=== PATIENT | female | born 1995 | race Caucasian/White ===

== ENCOUNTER 2018-01-08 14:21 | Outpatient (CLI) | payer OTHER ==
--- NOTE | 2018-01-08 16:07 | ULT ---
COMPLETE OB ULTRASOUND GREATER THAN 14 WEEKS: History: 22-year-old female for anatomy evaluation. FINDINGS: Single viable intrauterine fetus is noted in breech presentation. The placenta is fundal. Cervical le ngth 4.3 cm. Amniotic fluid is within normal limits with an JOSE F of 14.5 cm. Visualized anatomy including brain, four chamber heart, three vessel cord, stomach, bladder, kidney, spine and ext remity regions are unremarkable as visualized with somewhat limited visualization of the lips and nos e. BDP 5.3 cm 20 weeks 0 days HC 19.6 cm 21 weeks 5 days AC 17.1 cm 20 weeks 0 days FL 3.6 cm 21 weeks 3 days IMPRESSION: Unremarkable single viable intrauterine fetus in breach presentation. Gestational age average 21 week s 5 days. EDC 6. Estimated weight 450 grams. POS: ZARIA
== END 2018-01-08 14:22 | disposition home or self-care (01) ==
LOC: ULT 14:21
PROVIDERS: ATTEND Nurse Practitioner
DX: Z34.82 Encounter for supervision of other normal pregnancy, second trimester (principal); Z3A.21 21 weeks gestation of pregnancy
CPT/HCPCS: 76805

== ENCOUNTER 2018-05-05 11:57 | Day surgery (SDC) | payer OTHER ==
--- NOTE | 2018-05-05 12:28 | PDOC.LDHP ---
Labor and Delivery H&P Chief complaint: other (scheduled version) HPI: 22yo at 38w3d by LMP for external version for breech presentation. No complaints. Current gestational age (weeks): 38 Due date: 05/16/18 Dating criteria: last menstrual period Grav: 3 Para: 1 Current complications: none Abnormal US findings: No Current medications: pre-agustin vitamins Previous surgical history: none Allergies/Adverse Reactions: Allergies Allergy/AdvReac Type Severity Reaction Status Date / Time No Known Allergies Allergy Verified 05/05/18 12:37 Social history: none - Physical Exam Vital signs reviewed and normal: yes General: NAD Lungs: CTAB Abdomen: gravid Extremeties: no edema FHT: category 1 [place] contractions every: none - OB Labs Blood type: O RH: negative Antibody Screen: negative HIV: negative RPR: negative HEPSAg: negative 1 hour GCT: negative GBS: negative Urine drug screen: negative Rubella: immune - Assessment 38wk IUP with persistent breech presentation for version. - Plan -: Counseled on options, breech unengaged, nl JOSE F, anterior placenta, feel attempt at version is reasonable. Disc risk of failure (50/50), NRFHT/abruption/ROM that would require emergent CS. Pt understands and wishes to proceed. Procedure note: Preop dx 38w IUP, breech presentation. Procedure attempted external cephalic version Complications: none Procedure note: Pt given 0.25mcg SC terbutaline. Mineral oil placed on abdomen. Ultrasound performed by Dr Dunaway. head and breech grasped and attempted to do forward and backward roll. This was unsuccessful. Intermittent FHT 134. Procedure concluded and unsuccessful due to head being under right rib cage and inability to grasp to vert. Pt tolerated well. For monitoring for 30min and Rhogam prior to DC.
[2018-05-05] MEDS ORDERED: Mineral Oil PER 1 ML PO SCH (12:30)
[2018-05-05] MEDS ORDERED: Terbutaline Sulfate 1 MG/ML VIAL ONE (12:32)
[2018-05-05 13:00] VITALS: BMI 45.8
[2018-05-05] MEDS ORDERED: Mineral Oil PER 1 ML TOP SCH (13:03)
[2018-05-05] MEDS ORDERED: Ondansetron HCl/PF 4 MG/2 ML Vial IVP PRN (13:03)
[2018-05-05] MEDS ORDERED: Promethazine HCl 25 MG/ML VIAL IM PRN (13:03)
[2018-05-05] MEDS ORDERED: Terbutaline Sulfate 1 MG/ML VIAL SC SCH (13:03)
[2018-05-05] MEDS ORDERED: Lactated Ringer's 1,000 ML IV SCH (13:03)
[2018-05-05] MEDS ORDERED: Butorphanol Tartrate 1 MG/ML VIAL SLOW IVP PRN (13:03)
[2018-05-05 13:14] VITALS: BP 125/57; TEMP 98.6
== END 2018-05-05 14:47 | disposition home or self-care (01) ==
LOC: L&D/OP 11:57
PROVIDERS: ATTEND Student in an Organized Health Care Education/Training Program
DX: O32.1XX0 Maternal care for breech presentation, not applicable or unspecified (principal); Z3A.38 38 weeks gestation of pregnancy
CPT/HCPCS: 59412; 76815; 86850; 86900; 86901; 90384; 96365; 96366; 96372; 96375; J3105

== ENCOUNTER 2018-05-09 12:00 | Inpatient (IN) | payer OTHER ==
[2018-05-13 06:24] VITALS: BMI 45.8
[2018-05-13] MEDS ORDERED: Bupivacaine 0.75% W/DEXTROSE 8.25% 2 ML AMP ONE (07:08)
[2018-05-13] MEDS ORDERED: PHENYLEPHRINE-NS 100 MCG/ML 10 ML SYRINGE ONE (07:09)
[2018-05-13] MEDS ORDERED: Oxytocin 10 UNITS/ML VIAL ONE ×2 (07:09→08:15)
[2018-05-13] MEDS ORDERED: Morphine PF 1 MG/ML SYR ONE (07:10)
[2018-05-13] MEDS ORDERED: Bicitra 30 ML UDCUP ONE (07:14)
[2018-05-13] MEDS ORDERED: Lidocaine 1% PF 5 ML VIAL ONE (07:15)
[2018-05-13] MEDS ORDERED: Ondansetron HCl/PF 4 MG/2 ML Vial ONE ×2 (07:19→12:38)
[2018-05-13 07:28] LABS: Hemoglobin 11.9 g/dL (12.0-16.0); Mean Corpuscular HGB CONC 34.7 g/dL (32.0-36.0); Mean Corpuscular Hemoglobin 30.1 pg (27.0-31.0); Mean Corpuscular Volume 86.6 fL (78.0-98.0); Mean Platelet Volume 8.6 fL (7.4-10.4); Platelet Count 204 thou/uL (130-400); RBC Distribution Width 13.8 % (11.5-14.5); Red Blood Cell (RBC) Count 3.95 mill/uL (4.20-5.40); White Blood Cell (WBC) Count 9.7 thou/uL (4.8-10.8)
[2018-05-13] MEDS ORDERED: CEFAZOLIN/Water 2 GM/20 ML SYRINGE SLOW IVP SCH (07:30)
[2018-05-13] MEDS ORDERED: Bicitra 30 ML UDCUP PO SCH (07:30)
--- NOTE | 2018-05-13 07:32 | PDOC.LDHP ---
Labor and Delivery H&P Chief complaint: scheduled section HPI: 22yo at 39w4d by LMP for PCS due to breech, failed ECV. C/o toothache Current gestational age (weeks): 39 Due date: 05/14/18 Dating criteria: last menstrual period Grav: 2 Para: 1 Current complications: none Abnormal US findings: No Past Medical History: denies Current medications: pre- vitamins Previous surgical history: none Allergies/Adverse Reactions: Allergies Allergy/AdvReac Type Severity Reaction Status Date / Time No Known Allergies Allergy Verified 05/05/18 12:37 Social history: none - Physical Exam Vital signs reviewed and normal: yes General: NAD Heart: RRR Lungs: CTAB Abdomen: gravid Extremeties: no edema FHT: category 1 [place] contractions every: none - OB Labs Blood type: O RH: negative Antibody Screen: negative HIV: negative RPR: negative HEPSAg: negative 1 hour GCT: negative GBS: negative Urine drug screen: positive Rubella: immune - Assessment L&D Assessment: scheduled primary section - Plan Plan: admit to L&D, to OR for section, informed consent obtained, anesthesia consult for pain management -: UDS for previous + THC on initial screen Rhogam PP if indicated
[2018-05-13] MEDS ORDERED: CEFAZOLIN 1 GM VIAL ONE (07:36)
[2018-05-13 08:05] LABS: HBSAg Index 0.16 S/CO (0-0.99); Hep B Surf Ag Non-Reactive S/CO (NonReactive)
[2018-05-13] MEDS ORDERED: Meperidine HCl/PF 25 MG/ML VIAL SLOW IVP PRN (08:11)
[2018-05-13] MEDS ORDERED: Naloxone HCl 0.4 mg/ml Vial IVP PRN ×2 (08:11)
[2018-05-13] MEDS ORDERED: Promethazine HCl 25 MG SUPP PR PRN (08:11)
[2018-05-13] MEDS ORDERED: HYDROmorphone 2 MG/ML VIAL SLOW IVP PRN (08:11)
[2018-05-13] MEDS ORDERED: Naloxone HCl 0.4 mg/ml Vial IV PRN (08:11)
[2018-05-13] MEDS ORDERED: Promethazine HCl 25 MG/ML VIAL IM PRN ×2 (08:11→10:58)
[2018-05-13] MEDS ORDERED: diphenhydrAMINE 50 MG/ML VIAL IVP PRN (08:11)
[2018-05-13] MEDS ORDERED: Eucerin (Mineral Oil/Petrolatum,White) 30 gm Jar TOP PRN (08:11)
[2018-05-13] MEDS ORDERED: Ondansetron HCl/PF 4 MG/2 ML Vial IVP PRN ×3 (08:11→10:58)
[2018-05-13] MEDS ORDERED: Ketorolac Tromethamine 30 MG/ML VIAL IVP PRN (08:11)
[2018-05-13] MEDS ORDERED: Ketorolac Tromethamine 30 MG/ML VIAL IVP SCH (08:15)
[2018-05-13] MEDS ORDERED: Communication Order-Pharmacy FS SCH (08:15)
[2018-05-13 09:38] LABS: Amphetamine Not Detected (NotDetected); Barbiturates Screen Not Detected (NotDetected); Benzodiazepine Screen Not Detected (NotDetected); Cocaine Metabolite Screen Not Detected (NotDetected); Medtox Control Line Valid? VALID (VALID); Medtox Reader # READER 1; Methadone Not Detected (NotDetected); Methamphetamine Not Detected (NotDetected); Opiate Screen Not Detected (NotDetected); Oxycodone Screen Not Detected (NotDetected); Phencyclidine (PCP) Not Detected (NotDetected); THC/Cannabinoid Screen Not Detected (NotDetected); Tricyclic Screen Not Detected (NotDetected)
--- NOTE | 2018-05-13 09:48 | PDOC.OPDEL ---
OB Operative/Delivery Note Delivery Dr/Surgeon: Isaac Assist: Jolie, PGY1 Pre-Delivery Diagnosis: breech, scheduled section Procedure/Post Delivery Dx: primary low transverse CS Weeks gestation: 39 Anesthesia: spinal - Findings A Sex: female (8) - 1 min: 8 - 5 min: 9 - Additional Findings/Plan Placenta delivered: spontaneous findings: low transverse hysterotomy without extension, normal uterus, normal tubes, normal ovaries Estimated blood loss: 500 Post delivery plan: routine recovery
[2018-05-13] MEDS ORDERED: HYDROcodone/Acetaminophen 5/325 mg Tablet PO PRN (10:58)
[2018-05-13] MEDS ORDERED: Prenatal Vitamin 1 TAB PO SCH (10:58)
[2018-05-13] MEDS ORDERED: Bisacodyl 10 MG SUPP PR PRN (10:58)
[2018-05-13] MEDS ORDERED: NS / Oxytocin 40 units/1000ml 1,000 ML IV SCH (10:58)
[2018-05-13] MEDS ORDERED: Acetaminophen 325 MG TAB PO PRN (10:58)
[2018-05-13] MEDS ORDERED: diphenhydrAMINE 25 MG CAP PO PRN (10:58)
[2018-05-13] MEDS ORDERED: Docusate Calcium (SURFAK) 240 MG CAP PO SCH (10:58)
[2018-05-13] MEDS ORDERED: Lanolin Ointment 7 GM TUBE TOP PRN (10:58)
[2018-05-13] MEDS ORDERED: Adacel (T-DAP) 0.5 ML VIAL IM ONE (10:58)
[2018-05-13] MEDS ORDERED: Ferrous Sulfate 325 MG TAB PO SCH (10:58)
[2018-05-13] MEDS: Ibuprofen 800 MG TAB PO SCH (14:24)
[2018-05-13] MEDS: Simethicone Chewable 80 MG TAB PO PRN (14:24)
[2018-05-13 16:59] LABS: Syphilis Antibody Nonreactive (Nonreactive); Syphilis Antibody Index 0.04 S/CO (<1.00 Non-Reactive)
[2018-05-14] MEDS: Ferrous Sulfate 325 MG TAB PO SCH ×3 (05:21→21:44)
[2018-05-14] MEDS: Docusate Calcium (SURFAK) 240 MG CAP PO SCH ×3 (05:21→21:44)
[2018-05-14] MEDS: Ibuprofen 800 MG TAB PO SCH ×4 (05:22→21:44)
[2018-05-14 05:56] LABS: Mean Corpuscular HGB CONC 34.6 g/dL (32.0-36.0); Mean Corpuscular Hemoglobin 30.4 pg (27.0-31.0); Mean Corpuscular Volume 87.9 fL (78.0-98.0); Mean Platelet Volume 8.2 fL (7.4-10.4); Platelet Count 168 thou/uL (130-400); RBC Distribution Width 13.8 % (11.5-14.5); Red Blood Cell (RBC) Count 3.31 mill/uL (4.20-5.40); White Blood Cell (WBC) Count 8.2 thou/uL (4.8-10.8)
--- NOTE | 2018-05-14 08:13 | PDOC.PP ---
Post Progress Note Post Day #: 1 PO intake tolerated: yes Flatus: yes Ambulation: yes Vital Signs (12 hours) Temp Pulse Resp 05/14/18 00:00 98.8 F 85 20 Weight Weight 259 lb - Physical Examination General: NAD Cardiovascular: RRR Respiratory: non-labored breathing Abdominal: no distention, appropriately TTP Fundus firm & at: umb-2 Skin: CS incision dry & intact Neurological: no gross focal deficits Psychiatric: normal affect Result Diagrams: 05/14/18 05:20 Additional Labs: Post Labs Blood Type O NEGATIVE 05/13/18 06:20 Hep Bs Antigen Non-Reactive S/CO (NonReactive) 05/13/18 06:20 (1) Breech, regina Code(s): O32.1XX0 - MATERNAL CARE FOR BREECH PRESENTATION, UNSP Status: Acute (2) delivery indicated due to breech presentation Code(s): O32.1XX0 - MATERNAL CARE FOR BREECH PRESENTATION, UNSP Status: Acute - Assessment/Plan POD1 s/p PCS for breech VSSAF Hgb 10 after ebl 500cc, appropriate without s/sx anemia, dc with PNV. Appropriate postop milestones. Rh neg Rhogam screening, RImm UDS neg, h/o THC on intial visit. Cont postop care.
[2018-05-14] MEDS: Simethicone Chewable 80 MG TAB PO PRN (09:22)
[2018-05-14] MEDS: Prenatal Vitamin 1 TAB PO SCH (09:22)
[2018-05-14] MEDS: HYDROcodone/Acetaminophen 5/325 mg Tablet PO PRN ×2 (11:08→21:45)
--- NOTE | 2018-05-14 19:35 | OP ---
DATE OF PROCEDURE: 05/13/2018. PREOPERATIVE DIAGNOSES: 1. Intrauterine at 39 weeks and 4 days. 2. Breech presentation, failed external cephalic version. POSTOPERATIVE DIAGNOSES: 1. Intrauterine at 39 weeks and 4 days. 2. Breech presentation, failed external cephalic version. PROCEDURE PERFORMED: Primary low transverse section via Pfannenstiel skin incision. ANESTHESIA: Spinal. ATTENDING SURGEON: Georgiana Gray M.D. BOAT BUFFER PLASTIC SURGEON: COMPLICATIONS: None. DRAINS: George catheter. PATHOLOGY: None. ESTIMATED BLOOD LOSS: 500 mL INTRAVENOUS FLUID: 1500 crystalloid. URINE OUTPUT: Pending. FINDINGS: A female infant in regina breech presentation, clear amniotic fluid, Apgars of 8 and 9, venice ght is 6 pounds 10 ounces. Normal uterus, ovaries and tubes bilaterally. OPERATIVE TECHNIQUE: The patient was taken to the operating room where spinal anesthesia was obtaine d without difficulty. The patient was prepped and draped in a sterile fashion in the dorsal supine p osition with leftward tilt. After ensuring adequacy of anesthesia, a Pfannenstiel skin incision was made and carried down to the underlying subcutaneous tissue with the Bovie. The fascia was nicked in the midline with the Bovie and carried laterally with the Ram scissors. The superior aspect of the fascia was tented with the Celestine and dissected off the rectus bluntly. The perforators were cauter ized. The inferior aspect of the fascia was tented with two Kochers and dissected off the rectus kristina n to the pubic symphysis with the Ram. The rectus were bluntly divided in the midline and the perit oneum was bluntly (01:54) manually retracted. The Beto O retractor was placed and the lower uterine segment was incised in a transverse fashion with the Valenzuela maneuver. The breech was brought t o the hysterectomy and delivered with standard maneuvers without difficulty. The cord was clamped an d the infant handed to the awaiting sandra team. Cord blood was obtained and the placenta was allowed t o spontaneously deliver. The uterus was exteriorized, cleared of all clots and debris. The posterio r cul-de-sac was left out and placed back into the abdomen. Hysterectomy was repaired with #1 Monocr yl in running locking fashion. A second imbricating layer of #1 Monocryl was placed in a horizontal fashion with excellent hemostasis noted. Irrigation of the pelvis and pericolic gutters was performe d and suctioned and again noting hemostasis. The peritoneum was closed with a 2-0 chromic in a runni ng fashion. The rectus muscles were examined and noted to be hemostatic. The fascia was reapproxima kaya with an 0 PDS x2 sutures with excellent reapproximation. Subcutaneous tissue was irrigated and c auterized of any bleeders and reapproximated with a 2-0 plain gut in a running fashion x2 layers. Sk in was closed with 4-0 Monocryl in a subcuticular fashion. Dermabond was applied as well as a pressu re dressing. The patient tolerated the procedure well. Sponge, lap and needle counts were correct x 2. The patient was taken to recovery room in stable condition. The patient received Ancef 2 grams p rior to the procedure.
[2018-05-15] MEDS: Ibuprofen 800 MG TAB PO SCH (05:13)
[2018-05-15] MEDS: Docusate Calcium (SURFAK) 240 MG CAP PO SCH (07:38)
[2018-05-15] MEDS: HYDROcodone/Acetaminophen 5/325 mg Tablet PO PRN ×2 (07:38→12:13)
[2018-05-15] MEDS: Prenatal Vitamin 1 TAB PO SCH (07:38)
[2018-05-15 07:48] VITALS: BP 121/72; TEMP 98.1
[2018-05-15] MEDS: Ferrous Sulfate 325 MG TAB PO SCH (09:11)
--- NOTE | 2018-05-15 10:08 | PDOC.PP ---
Post Progress Note Post Day #: 2 PO intake tolerated: yes Flatus: yes Ambulation: yes Vital Signs (12 hours) Temp Pulse Resp BP 05/15/18 07:47 98.1 F 68 16 121/72 05/15/18 07:35 98.1 F 68 16 05/15/18 04:45 97.7 F 65 20 114/64 Weight Weight 259 lb - Physical Examination General: NAD Cardiovascular: RRR Respiratory: non-labored breathing Abdominal: no distention, appropriately TTP Skin: CS incision dry & intact Psychiatric: normal affect Result Diagrams: 05/14/18 05:20 Additional Labs: Post Labs Blood Type O NEGATIVE 05/13/18 06:20 Hep Bs Antigen Non-Reactive S/CO (NonReactive) 05/13/18 06:20 (1) Breech, regina Code(s): O32.1XX0 - MATERNAL CARE FOR BREECH PRESENTATION, UNSP Status: Acute (2) delivery indicated due to breech presentation Code(s): O32.1XX0 - MATERNAL CARE FOR BREECH PRESENTATION, UNSP Status: Acute
== END 2018-05-15 12:20 | disposition home or self-care (01) | DRG 766 ==
LOC: L&D 05-13 05:53 → 3SW 05-13 11:08
PROVIDERS: ADMIT Student in an Organized Health Care Education/Training Program; ATTEND Student in an Organized Health Care Education/Training Program
PROC: 10D00Z1 Extraction of Products of Conception, Low, Open Approach (ICD-10-PCS; principal; 2018-05-13)
DX: O32.1XX0 Maternal care for breech presentation, not applicable or unspecified (principal); Z3A.39 39 weeks gestation of pregnancy; Z37.0 Single live birth; O26.893 Other specified pregnancy related conditions, third trimester; Z67.41 Type O blood, Rh negative
CPT/HCPCS: 36415; 51702; 76815; 80306; 85027; 85461; 86780; 86850; 86870; 86900; 86901; 87340; 90384; 96372; A4216; J0690; J1885; J2001; J2274; J2310; J2405; J2590; J3490